=== PATIENT | female | born 1980 | race African-American/Black ===

== ENCOUNTER 2020-02-25 16:18 | Emergency (ER) | payer BC ==
[~2020-02-25] VITALS: Ht 157.5 cm; Wt 100.7 kg
[2020-02-25 16:18] VITALS: BP 148/90
[2020-02-25] MEDS ORDERED: TIZANIDINE4 MG/1 TA1 PO ×2 (16:48→17:05)
== END 2020-02-25 16:49 | disposition home or self-care (01) ==
LOC: ER 16:18
DX: M54.5 Low back pain (principal)